=== PATIENT | male | born 1965 | race Caucasian/White ===

== ENCOUNTER 2017-04-25 14:11 | Day surgery (SDC) | payer BC ==
[~2017-04-25] VITALS: Ht 180.3 cm; Wt 97.6 kg
[~2017-04-25 14:11] MED LIST: LUMIGAN 0.50 DROP/22 BOTH EYES; NOHOMEMEDS; OMEPRAZOLE40 M1 PO; XALATAN2.5 ML BOTH EYES
[2017-04-25 14:41] VITALS: BP 112/75
[2017-04-25 16:35] VITALS: BP 123/74
[2017-04-25 18:00] VITALS: BP 123/75
[2017-04-25 18:01] VITALS: BP 123/75
[2017-04-25 18:35] VITALS: BP 123/74
== END 2017-04-25 20:24 | disposition home or self-care (01) ==
LOC: SDC 14:11
DX: H33.032 Retinal detachment with giant retinal tear, left eye (principal); K21.9 Gastro-esophageal reflux disease without esophagitis; Z87.891 Personal history of nicotine dependence
CPT/HCPCS: J0690; J3010; J3300

== ENCOUNTER 2017-07-11 07:59 | Day surgery (SDC) | payer BC ==
[~2017-07-11] VITALS: Ht 180.3 cm; Wt 97.0 kg
[2017-07-11 09:16] VITALS: BP 108/61
[2017-07-11 13:25] VITALS: BP 119/82
[2017-07-11 13:40] VITALS: BP 122/75
== END 2017-07-11 13:53 | disposition home or self-care (01) ==
LOC: SDC 07:59
DX: H33.42 Traction detachment of retina, left eye (principal); H35.372 Puckering of macula, left eye; K21.9 Gastro-esophageal reflux disease without esophagitis; Z87.891 Personal history of nicotine dependence
CPT/HCPCS: J0690; J0713; J7120

== ENCOUNTER 2017-11-28 06:33 | Day surgery (SDC) | payer BC ==
[~2017-11-28] VITALS: Ht 180.3 cm; Wt 97.5 kg
[~2017-11-28 06:33] MED LIST changes: +ACULAR 0.5100 DROP/5 LEFT EYE; +COMBIGAN O20 DROP/5 LEFT EYE; -XALATAN2.5 ML BOTH EYES; +XALATAN2.5 ML RIGHT EYE
[2017-11-28 06:53] VITALS: BP 101/57
[2017-11-28 09:45] VITALS: BP 129/79
== END 2017-11-28 10:10 | disposition home or self-care (01) ==
LOC: SDC 06:33
DX: H33.22 Serous retinal detachment, left eye (principal); K21.9 Gastro-esophageal reflux disease without esophagitis; H40.9 Unspecified glaucoma; Z87.891 Personal history of nicotine dependence
CPT/HCPCS: J0690; J0713; J2250; J3300